=== PATIENT | female | born 1955 | race Caucasian/White ===

== ENCOUNTER → 2017-11-03 | Emergency (ER) | payer BC, SELFPAY ==
[~2017-11-03] MED LIST: HYDROcodone/Acetaminophen 10/325 mg Tablet ONE; Naproxen 500 MG TAB ONE
--- NOTE | 2017-11-03 21:33 | RAD ---
THREE VIEWS OF THE RIGHT ANKLE 11/03/17 COMPARISON: None. HISTORY: Pain, trauma, injury. FINDINGS: the talar dome and ankle mortise are intact. There is no displaced fracture or evidence of dislocatio n seen. There is prominent enthesophyte formation at the origin of the plantar aponeurosis. IMPRESSION: No acute findings. POS: RO
== END ==
LOC: MADERS 20:23
DX: S93.401A Sprain of unspecified ligament of right ankle, initial encounter (principal); W01.0XXA Fall on same level from slipping, tripping and stumbling without subsequent striking against object, initial encounter; Y92.009 Unspecified place in unspecified non-institutional (private) residence as the place of occurrence of the external cause

== ENCOUNTER 2018-07-26 13:13 | Emergency (ER) | payer BC, SELFPAY ==
[2018-07-26] MEDS ORDERED: Acetaminophen 500 MG TAB ONE (13:30)
[2018-07-26] MEDS ORDERED: Fentanyl 100 MCG/2 ML VIAL ONE (14:23)
--- NOTE | 2018-07-26 14:29 | RAD ---
LEFT SHOULDER 3 VIEWS: HISTORY: Fell off of a porch. FINDINGS: There is a nondisplaced humeral neck fracture present. Bones appear demineralized. IMPRESSION: Acute-appearing humeral neck fracture, nondisplaced. POS: [facility]AR[facility]
--- NOTE | 2018-07-26 14:29 | CT ---
CT BRAIN NONCONTRAST: HISTORY: A 62-year-old female status post acute head injury due to fall, resulting in loss of consciousness. FINDINGS: There is no midline shift or any other mass effect. There is no evidence of acute intracranial hemor rhage, large cortical infarct, obstructive hydrocephalus, or extraaxial fluid collection. The calvar ium is intact. IMPRESSION: No acute intracranial findings. jn [] POS: [facility]ARO
--- NOTE | 2018-07-26 14:43 | CT ---
CT CERVICAL SPINE: HISTORY: Fell off of porch, neck pain. FINDINGS: Axial images are obtained with coronal and sagittal reconstructions. CT images demonstrate extensive thoracic surgical hardware beginning at T2 level extending inferiorly . There is some loss of the normal lordotic curvature of the cervical spine with disk desiccation and o steophyte formation of the C3-4 level posterior to the disk level at this region. There is some mild anterolisthesis of C4 on C5. Disk space height loss is seen at C5-6 with large anterior osteophytes also seen. No definite eviden ce of acute cervical spine fracture is seen. IMPRESSION: Mid cervical changes of spondylosis with loss of the normal lordotic curvature of the cervical spine and anterior osteophytes seen at C5-6 level. POS: [facility]O
== END 2018-07-26 14:52 | disposition home or self-care (01) ==
LOC: MADERS 13:13
DX: S06.0X1A Concussion with loss of consciousness of 30 minutes or less, initial encounter (principal); S42.202A Unspecified fracture of upper end of left humerus, initial encounter for closed fracture; W19.XXXA Unspecified fall, initial encounter
CPT/HCPCS: 36416; 70450; 72125; 93005; 96374; J3010